=== PATIENT | female | born 1980 | race Caucasian/White ===

== ENCOUNTER 2016-03-06 18:59 | Emergency (ER) | payer BC ==
[2016-03-06] MEDS ORDERED: KETOROLAC 60 MG/2 ML VIAL IM ONE (19:54)
== END 2016-03-06 20:49 | disposition home or self-care (01) ==
LOC: FASTR 18:59
DX: S16.1XXA Strain of muscle, fascia and tendon at neck level, initial encounter (principal); M54.12 Radiculopathy, cervical region; Z87.891 Personal history of nicotine dependence
CPT/HCPCS: 72050; 96372